=== PATIENT | female | born 1970 | race Caucasian/White ===

== ENCOUNTER 2023-12-27 09:02 | Outpatient (CLI) | payer MEDICARE, MEDICAID | END 2023-12-27 23:59 | disposition critical access hospital (66) | LOC: EMS 09:02 | DX: M54.50 Low back pain, unspecified (principal); R32 Unspecified urinary incontinence; R15.9 Full incontinence of feces | CPT/HCPCS: A0425; A0429 ==

== ENCOUNTER 2023-12-27 09:21 | Emergency (ER) | payer MEDICARE, MEDICAID ==
--- NOTE | 2023-12-27 09:57 | ED Physician Documentation ---
PD HPI BACK PAIN - Stated complaint Stated Complaint: LOW BACK PX - Chief complaint Chief Complaint: Back Pain - History obtained from History obtained from: Patient, EMS - History of Present Illness Timing - onset: Chronic Timing - details: Gradual onset, Waxing and waning, Other (pain lumbar area with feeling of weakness both legs at times, and has noted recently some dribbling of urine. Had had MRI lumbar in August 2023 in [place] and has report result with her, with some mild stenoses, mainly L5/S1.) Quality: Pain, Aching Associated symptoms: Weakness, Incontinent of urine. No: Fever, Numbness Worsened by: Movement Review of Systems Constitutional: denies: Fever, Chills Cardiac: denies: Chest pain / pressure, Palpitations Respiratory: denies: Dyspnea, Cough : denies: Dysuria Musculoskeletal: reports: Neck pain, Back pain PD PAST MEDICAL HISTORY - Past Medical History Past Medical History: Yes Respiratory: COPD - Past Surgical History Past Surgical History: No - Present Medications Home Medications: Ambulatory Orders Medication Instructions Recorded Confirmed Lidocaine Patch 5% [Lidoderm Patch] 1 patch TOP DAILY PRN #10 patch 12/27/23 Meloxicam [Mobic] 7.5 mg PO BID 10 Days #20 tablet 12/27/23 dexAMETHasone [Decadron] 4 mg PO DAILY #8 tablet 12/27/23 oxyCODONE [Roxicodone] 5 mg PO Q8H PRN #25 tablet 12/27/23 tiZANidine [Zanaflex] 4 mg PO Q8H PRN #25 tablet 12/27/23 - Allergies Allergies/Adverse Reactions: Allergies Allergy/AdvReac Type Severity Reaction Status Date / Time ketorolac [From Toradol] Allergy Rash Verified 12/27/23 09:38 - Social History Does the pt smoke?: No Smoking Status: Former smoker - Immunizations Immunizations are current?: Yes - POLST Patient has POLST: No PD ED PE NORMAL - Vitals Vital signs reviewed: Yes - General General: Alert and oriented X 3, Well developed/nourished, Other (appears in pain due to low back as well as neck, with guarded ROM of both areas. ) - Neck Neck: Supple, no meningeal sign, No adenopathy - Cardiac Cardiac: RRR, No murmur - Respiratory Respiratory: Clear bilaterally - Abdomen Abdomen: Soft, Non tender - Back Back: No spinal TTP (seems tender in muscles bilaterally. ) - Derm Derm: Normal color, Warm and dry - Neuro Neuro: Alert and oriented X 3, No motor deficit, No sensory deficit, Other (normal seeming patellar reflexes. ) Results - Vitals Vitals: Vital Signs - 24 hr 12/27/23 12/27/23 12/27/23 09:29 14:24 15:30 Temperature 36.2 C L 36.5 C Heart Rate 75 56 L 67 Respiratory 22 22 20 Rate Blood Pressure 143/89 H 136/75 H 145/86 H O2 Saturation 95 97 98 Oxygen O2 Source Room air PD Medical Decision Making - ED course Complexity details: reviewed results (no significant central canal stenosis. L5/S1 right foraminal encroachment. ), considered differential (chronic low back pain, with MRI lumbar last in August 2023 showing some disc disease and protrusions, but no notable central canal stenosis. She states has had much increased back pain with now week or so of legs weakness, and perineal numbness intermittently. Some urinary incontinence. ), d/w patient ED course: moved recently from [place], was in pain clinic there and PMD had her regular scripts for meds. I told her I would presume to treat back pain with comination anti-inflammatories, muscle relaxants (not highly effective but additive with other meds), as well as pain meds and not opioids as single meds. She said most other meds (anti-imflamm, muscle relaxants) had not been effective so her prescriber in [place] hadnot given scripts for them. d She had instructions from provider in [place] suggesting imaging for neck MRI as also with chronic neck pain, flexion/extension views of lumbar spine, and xrays of hips? I believe. Given her complaint of saddle anesth and leg weakness, incontinence, I told her that the priority with being sent to the ER was lumbar spine area and we would be just imaging there. Not including the cervical spine now; will need to get that outpt. Departure - Departure Disposition: 01 Home, Self Care Clinical Impression: Low back pain, Lower extremity weakness Condition: Stable Record reviewed to determine appropriate education?: Yes Prescriptions: dexAMETHasone [Decadron] 4 mg PO DAILY #8 tablet Lidocaine Patch 5% [Lidoderm Patch] 1 patch TOP DAILY PRN #10 patch PRN Reason: pain Meloxicam [Mobic] 7.5 mg PO BID 10 Days #20 tablet oxyCODONE [Roxicodone] 5 mg PO Q8H PRN #25 tablet PRN Reason: Pain tiZANidine [Zanaflex] 4 mg PO Q8H PRN #25 tablet PRN Reason: Spasms Comments: The MRI of your low back did not show any significant encroachment on the central canal and only mild areas of nerve root stenosis. The only moderate 1 was L4 with some encroachment of the nerve root outlet. As such there is no signs of pressure or central stenosis in the lower cord to account for any of the incontinence or leg weakness. There may be some nerve root irritation on the right fourth lumbar ("sciatic)". This is not to say you are not having pain in the back with spasms and inflammation in some nerve root or nerve irritation. This can be from outside of the spine as well with muscle spasms etc. Typically we would think of treating this with a combination of some anti- inflammatories plus muscle relaxant, physical therapy or physical modalities such as massage or chiropractic. Then regular use of acetaminophen 500 to 650 mg 4 times daily regularly for pain. To that then add stronger pain medicine every 6-8 hours if needed for worse pain. I wrote a prescription for several medicines to your preferred pharmacy. Follow-up with the walk-in or primary care clinics here as you establish local care. Sometimes he can get some benefit from topical medicines to such as lidocaine patches. I am prescribing a short course of narcotic pain medication for you. These are potentially dangerous and addictive medications that should be used carefully. These medications may constipate you. Take an mbmi-pna-ochrjkc stool softener such as docusate twice daily with plenty of water while taking these medications. If you go 24 hours without a bowel movement, take edyw-wym-oestjpy MiraLAX, per package instructions. Do not drink or drive while taking these medications. If you received narcotic or sedating medications while in the emergency department do not drive for 24 hours. Store this medication in a safe, secure place and out of reach of children. It is a violation of federal law to give or sell this medication to another person or to use in a manner other than prescribed. The ED will not refill narcotic prescriptions, including prescriptions lost or stolen. You can dispose of unwanted medications at the [facility]'s office or at several pharmacies such as [facility]. Discharge Date/Time: 12/27/23 15:30
[2023-12-27] MEDS: LORazepam 2 MG/ML VIAL IVP STA ×2 (10:48→12:23)
[2023-12-27] MEDS: HYDROmorphone 1 MG/ML CARPUJECT IVP STA ×3 (10:49→15:03)
[2023-12-27] MEDS: DEXAMETHASONE 10 MG/ML VIAL IVP STA (10:49)
[2023-12-27] MEDS: tiZANidine 4 MG TABLET PO STA (10:50)
--- NOTE | 2023-12-27 10:51 | XRAY Report ---
PROCEDURE: Lumbar Spine Bending 2-3V INDICATIONS: spondylolisthesis on prior CT TECHNIQUE: 4 views of the lumbar spine were acquired including flexion and extension view. COMPARISON: None. FINDINGS: Surgical change: None. Bones: 5 [id number]-zct-ntraocn vertebrae are present. There is mild, approximately 7 mm of L4-L5 anterolis thesis secondary to facet hypertrophy. No vertebral body compression fractures. No suspicious bony l esions. Mild degenerative disc disease noted throughout the lumbar spine. Mild L4-L5 and L5-S1 facet arthropathy. Soft tissues: Overlying bowel gas pattern is normal. No suspicious soft tissue calcifications. Flexion/extension: Reduced range of motion, without change in alignment. IMPRESSION: Grade 1 L4-L5 degenerative spondylolisthesis. Multilevel degenerative disc disease. Multilevel facet arthropathy. No fracture. No acute osseous lesion. If there is continued clinical concern for pathology, then MRI should be considered for further evaluation. Reviewed by: Aarti Huff MD, PhD on 12/27/2023 10:49 AM PDT Approved by: Aarti Huff MD, PhD on 12/27/2023 10:49 AM PDT Station ID: [id number]
--- NOTE | 2023-12-27 13:21 | MRI Report ---
PROCEDURE: Lumbar Spine WO INDICATIONS: back pain, now saddle numbness TECHNIQUE: Noncontrast sagittal T1 spin echo and T2 fast echo, sagittal STIR, axial T1 and T2 fast spin echo thr ough the lumbar spine. In cases with scoliosis, additional coronal T2 fast spin echo may be performe d. COMPARISON: Lumbar spine plain films from today. FINDINGS: Image quality: Excellent. Alignment and Curvature: 4 mm anterolisthesis of L4 on L5. Bone Marrow: Marrow is of normal overall signal. No acute vertebral body compression fractures. Spinal Cord: Conus medullaris terminates at the T12-L1 level. Visualized cord demonstrates normal s ignal and size. Paraspinous Soft Tissues: No paravertebral masses. T12-L1: No canal stenosis or foraminal stenosis. Minimal right paracentral disc protrusion. L1-L2: Normal in appearance. L2-L3: Normal in appearance. L3-L4: Annulus tear plus disc bulge. Mild facet hypertrophy. No canal stenosis or foraminal stenosi s. L4-L5: 4 mm anterolisthesis L4 on L5. Posterior disc bulge. Facet hypertrophy. Borderline canal jayro nosis. No foraminal stenosis. Small free disc fragment has migrated superiorly behind L4 to the left of midline. It is likely an incidental finding, without significant mass effect on the thecal sac. It measures 0.6 x 0.8 x 0.6 cm. Reference sagittal image 17 of series 9 and axial image 32 of series 7. L5-S1: Right paracentral annulus tear plus mild broad-based right paracentral disc protrusion with mild mass effect on the right S1 nerve root in the right lateral recess. No central canal stenosis. M ild facet hypertrophy. No foraminal narrowing. IMPRESSION: 1. Multilevel underlying facet arthropathy. 2. At L4-L5, there is borderline canal stenosis. There is a superiorly migrated small disc fragment b ehind L4 which is likely an incidental finding. It does not affect the thecal sac. 3. Right paracentral annulus tear plus mild broad-based right paracentral disc protrusion at L5-S1 wi th mild mass effect on the right S1 nerve root. 4. No canal stenosis at other levels. No significant foraminal stenosis. Reviewed by: Bandar Vogel MD on 12/27/2023 1:19 PM PDT Approved by: Bandar Vogel MD on 12/27/2023 1:19 PM PDT Station ID: [id number]
[2023-12-27] MEDS: ACETAMINOPHEN 500 MG TABLET PO STA (15:02)
[2023-12-27] MEDS: oxyCODONE 5 MG TABLET PO STA (15:02)
[2023-12-27 15:43] VITALS: BP 145/86; O2SAT 98
== END 2023-12-27 15:30 | disposition home or self-care (01) ==
LOC: ED 09:21
DX: M54.50 Low back pain, unspecified (principal); R53.1 Weakness; J44.9 Chronic obstructive pulmonary disease, unspecified; Z79.899 Other long term (current) drug therapy
CPT/HCPCS: 72120; 72148; 96374; 96375; 96376; 99283; 99284; A9270; J1170; J2060